=== PATIENT | female | born 1950 | race Caucasian/White ===

== ENCOUNTER 2020-07-08 16:38 | Inpatient (IN) ==
[~2020-07-08 16:38] MED LIST: *HR* Atropine Sulfate 1 MG/10 ML SYRINGE IV ONE
[2020-07-08] MEDS ORDERED: Heparin 1,000 UNITS/500 mL 500 ML ONE (16:54)
[2020-07-08] MEDS ORDERED: ISOVUE-370 200 ML INFUS..BTL ONE (16:54)
[2020-07-08] MEDS ORDERED: *HR* Heparin 10,000 UNIT/10 ML VIAL ONE (16:54)
[2020-07-08] MEDS ORDERED: Nitroglycerin 1,000 MCG/10 ML VIAL IV ONE (16:54)
[2020-07-08] MEDS ORDERED: 0.9 % Sodium Chloride 2,000 ML ONE (16:54)
[2020-07-08] MEDS ORDERED: Perflutren Lipid Microsphere 1.3 ML in 0.9 % Sodium Chloride 8.7 ML IVP PRN (17:56)
[2020-07-08] MEDS ORDERED: *HR* FentaNYL (PF) 100 MCG/2 ML VIAL ONE (18:04)
[2020-07-08] MEDS ORDERED: *HR* Midazolam HCl 2 MG/2 ML VIAL ONE (18:04)
[2020-07-08] MEDS ORDERED: *HR* Norepinephrine 4 MG/4 ML VIAL IVC ONE (18:19)
[2020-07-08] MEDS ORDERED: D5% in Water 250 ML ONE (18:19)
[2020-07-08] MEDS ORDERED: *HR* Dextrose 50 % in Water (Vial) 50 ML VIAL IVP PRN (20:20)
[2020-07-08] MEDS ORDERED: Dextrose Gel 15 GM/37.5 ML TUBE PO PRN ×2 (20:20)
[2020-07-08] MEDS ORDERED: D5% in Water 1,000 ML IVC PRN (20:20)
[2020-07-08] MEDS: *HR* Ticagrelor 90 MG TABLET PO SCH (21:20)
[2020-07-09] MEDS: Insulin LISPRO 300 UNITS/3 ML VIAL SUBQ SCH ×5 (03:22→23:45)
[2020-07-09 05:53] LABS: Basophils % 0.3 %; Eosinophils # 0.1 K/mcL (0.0-0.6); Eosinophils % 0.5 %; Hematocrit 38.8 % (35.3-44.9); Hemoglobin 12.8 g/dL (11.5-15.4); Immature Granulocytes % 0.3 % (0-4); Mean Corpuscular Hemoglobin 30.4 pg (28.0-33.3); Mean Corpuscular Volume 92.2 fL (83.0-100.0); Mean Platelet Volume 10.6 fL (9.4-12.4); Monocytes # 1.1 K/mcL (0.0-1.3); Monocytes % 9.2 %; Neutrophils # 7.4 K/mcL (1.6-8.9); Platelet Count 234 K/mcL (140-400); Red Blood Count 4.21 M/mcL (3.82-4.97); Red Cell Distribution Width 13.9 % (11.5-14.5); Segmented Neutrophils % 63.7 %; White Blood Count 11.7 K/mcL (4.3-11.1)
[2020-07-09 06:18] LABS: Alanine Aminotransferase 33 Units/L (7-52); Albumin 3.9 g/dL (3.5-5.7); Albumin/Globulin Ratio 1.8 (1.1-2.2); Alkaline Phosphatase 61 Units/L (34-104); Aspartate Amino Transferase 137 Units/L (13-39); BUN/Creatinine Ratio 20 (6-26); Bilirubin,Total 0.6 mg/dL (0.3-1.0); Blood Urea Nitrogen 14 mg/dL (8-23); Calcium 8.5 mg/dL (8.6-10.3); Carbon Dioxide 22 mEq/L (23-29); Chloride 107 mEq/L (98-107); Chol/HDL Ratio 4.8 (0-4.9); Cholesterol 164 mg/dL (< 200); Globulin 2.2 g/dL (2.4-3.5); Glucose 98 mg/dL (70-105); HDL Cholesterol 34 mg/dL (40-59); LDL Cholesterol,Calculated 76 mg/dL (< 100); Osmolality,Calculated 288 (280-300); Potassium 3.6 mEq/L (3.5-5.1); Sodium 139 mEq/L (136-145); Total Protein 6.1 g/dL (6.4-8.9); Triglycerides 268 mg/dL (< 150); Troponin I 64.37 ng/mL (< 0.04); eGFR For African Americans > 60 (> 60); eGFR For Non-African Americans > 60 (> 60)
[2020-07-09] MEDS: *HR* Enoxaparin 40 MG/0.4 ML SYRINGE SQ SCH (06:46)
[2020-07-09 09:28] LABS: Estimated Average Glucose 140 mg/dl; Hemoglobin A1C 6.5 %
[2020-07-09] MEDS: Aspirin 81 MG TAB.CHEW PO SCH (09:42)
[2020-07-09] MEDS: *HR* Ticagrelor 90 MG TABLET PO SCH ×2 (09:43→20:17)
[2020-07-10 01:37] LABS: Hematocrit 39.1 % (35.3-44.9); Hemoglobin 12.9 g/dL (11.5-15.4); Mean Corpuscular Hemoglobin 29.9 pg (28.0-33.3); Mean Corpuscular Volume 90.7 fL (83.0-100.0); Mean Platelet Volume 10.8 fL (9.4-12.4); Platelet Count 234 K/mcL (140-400); Red Blood Count 4.31 M/mcL (3.82-4.97); White Blood Count 8.8 K/mcL (4.3-11.1)
[2020-07-10 02:01] LABS: BUN/Creatinine Ratio 17 (6-26); Blood Urea Nitrogen 10 mg/dL (8-23); Calcium 9.1 mg/dL (8.6-10.3); Carbon Dioxide 22 mEq/L (23-29); Chloride 107 mEq/L (98-107); Glucose 101 mg/dL (70-105); Osmolality,Calculated 291 (280-300); Potassium 3.4 mEq/L (3.5-5.1); Sodium 141 mEq/L (136-145); eGFR For African Americans > 60 (> 60); eGFR For Non-African Americans > 60 (> 60)
[2020-07-10] MEDS: *HR* Enoxaparin 40 MG/0.4 ML SYRINGE SQ SCH (05:03)
[2020-07-10] MEDS: Insulin LISPRO 300 UNITS/3 ML VIAL SUBQ SCH ×3 (06:18→18:03)
[2020-07-10] MEDS: Aspirin 81 MG TAB.CHEW PO SCH (08:03)
[2020-07-10] MEDS: *HR* Ticagrelor 90 MG TABLET PO SCH ×2 (08:03→20:00)
[2020-07-10] MEDS ORDERED: Metoprolol XL (24 HR) Succ 50 MG TAB.ER.24H PO SCH (09:00)
[2020-07-10] MEDS: Spironolactone 12.5 MG TABLET PO SCH (12:22)
[2020-07-10] MEDS: Metoprolol XL (24 HR) Succ 25 MG TAB.ER.24H PO SCH ×2 (12:22→20:01)
[2020-07-11 01:04] LABS: BUN/Creatinine Ratio 25 (6-26); Blood Urea Nitrogen 19 mg/dL (8-23); Calcium 8.7 mg/dL (8.6-10.3); Carbon Dioxide 23 mEq/L (23-29); Chloride 105 mEq/L (98-107); Glucose 91 mg/dL (70-105); Osmolality,Calculated 286 (280-300); Potassium 3.7 mEq/L (3.5-5.1); Sodium 137 mEq/L (136-145); eGFR For African Americans > 60 (> 60); eGFR For Non-African Americans > 60 (> 60)
[2020-07-11 01:10] LABS: Albumin 4.1 g/dL (3.5-5.7); Albumin/Globulin Ratio 1.5 (1.1-2.2); Bilirubin,Direct 0.2 mg/dL (0.0-0.2); Bilirubin,Indirect 0.5 mg/dL (0.0-1.0); Bilirubin,Total 0.7 mg/dL (0.3-1.0); Globulin 2.8 g/dL (2.4-3.5); Total Protein 6.9 g/dL (6.4-8.9)
[2020-07-11] MEDS: Insulin LISPRO 300 UNITS/3 ML VIAL SUBQ SCH ×2 (04:20→06:13)
[2020-07-11] MEDS: *HR* Enoxaparin 40 MG/0.4 ML SYRINGE SQ SCH (06:07)
[2020-07-11 06:48] VITALS: BP 122/47
[2020-07-11] MEDS: Aspirin 81 MG TAB.CHEW PO SCH (07:51)
[2020-07-11] MEDS: *HR* Ticagrelor 90 MG TABLET PO SCH (07:51)
[2020-07-11] MEDS: Metoprolol XL (24 HR) Succ 25 MG TAB.ER.24H PO SCH (07:51)
[2020-07-11] MEDS: Spironolactone 12.5 MG TABLET PO SCH (07:51)
[2020-07-11 23:08] LABS: Troponin I 13.36 ng/mL (< 0.04)
== END 2020-07-11 13:05 | disposition home or self-care (01) | DRG 247 ==
LOC: 2NNU
PROVIDERS: ADMIT Internal Medicine; ATTEND Internal Medicine

== ENCOUNTER 2021-02-15 06:35 | Inpatient (IN) ==
[2021-02-15] MEDS ORDERED: *HR* Magnesium Sulfate 2 GM/50 ML PIGGYBACK IVPB ONE (06:36)
[2021-02-15] MEDS ORDERED: Mannitol 25% vial 12.5 GM/50 ML VIAL IVPB ONE (06:36)
[2021-02-15] MEDS ORDERED: Lidocaine 2% Syringe 100 MG/5 ML IVP ONE (06:36)
[2021-02-15] MEDS ORDERED: *HR* Phenylephrine 10 MG/ML VIAL IVC ONE (06:36)
[2021-02-15] MEDS ORDERED: *HR* Heparin 10,000 UNIT/10 ML VIAL IR ONE (06:36)
[2021-02-15] MEDS ORDERED: Albumin Human 25% 25 GM/100 ML IV.SOLN IVPB ONE (06:36)
[2021-02-15] MEDS ORDERED: NiCARdipine 2.5 MG/10 ML Syringe IVPB ONE (06:54)
[2021-02-15] MEDS ORDERED: Chlorhexidine Rinse 15 ML MOUTHWASH MM ONE (06:59)
[2021-02-15] MEDS ORDERED: Ringers Solution, Lactated 1,000 ML IVC SCH (07:00)
[2021-02-15] MEDS ORDERED: *HR* Midazolam HCl 5 MG/5 ML VIAL IVP ONE ×2 (07:08→10:26)
[2021-02-15] MEDS ORDERED: *HR* Rocuronium Bromide 50 MG/5 ML VIAL ONE (07:09)
[2021-02-15] MEDS ORDERED: *HR* FentaNYL (PF) 250 MCG/5 ML VIAL ONE ×2 (07:09→10:26)
[2021-02-15] MEDS ORDERED: Famotidine 20 MG/2 ML VIAL ONE (07:11)
[2021-02-15] MEDS ORDERED: *HR* Etomidate 20 MG/10 ML AMPUL IVP ONE (07:11)
[2021-02-15] MEDS ORDERED: Calcium Gluconate 1,000 MG/10 ML VIAL ONE (07:15)
[2021-02-15] MEDS ORDERED: Protamine Sulfate 250 MG/25 ML VIAL IVP ONE (07:15)
[2021-02-15] MEDS ORDERED: Tranexamic Acid 1,000 MG/10 ML VIAL ONE ×2 (07:15→10:55)
[2021-02-15] MEDS ORDERED: Aspirin 81 MG TAB.CHEW PO STA (07:29)
[2021-02-15] MEDS ORDERED: Heparin 15,000 UNIT in 0.9 % Sodium Chloride 500 ML IV ONE (08:15)
[2021-02-15] MEDS ORDERED: Dextrose 50 % in Water (Vial) 30 ML, Sodium Bicarbonate 20 MEQ, Lidocaine 1% 5 ML, Insu... TH ONE ×3 (08:15)
[2021-02-15] MEDS ORDERED: Norepinephrine 4 MG in 0.9 % Sodium Chloride 250 ML IVC PRN (08:15)
[2021-02-15] MEDS ORDERED: Dextrose 50 % in Water (Vial) 30 ML, Sodium Bicarbonate 20 MEQ, Potassium Chloride 15 M... TH ONE (08:15)
[2021-02-15 09:00] LABS: ABG Base Excess 0 mEq/L (-2 to 3); ABG Chloride 106 mEq/L (98-107); ABG Glucose 120 mg/dL (60-95); ABG HCO3 29 mEq/L (21-27); ABG Ionized Calcium 1.03 mmol/L (1.15-1.35); ABG Oxygen Saturation 87 % (95-98); ABG PCO2 71 mmHg (35-45); ABG PH 7.22 pH Units (7.32-7.45); ABG PO2 66 mmHg (85-104); ABG TCO2 31 mEq/L (20-26)
[2021-02-15] MEDS: CeFAZolin Syr 2,000MG/20 ML 2,000 MG/20 ML SYRINGE IVPB ONE ×2 (09:15→12:35)
[2021-02-15 10:07] LABS: ABG Base Excess 1 mEq/L (-2 to 3); ABG Chloride 103 mEq/L (98-107); ABG Glucose 139 mg/dL (60-95); ABG HCO3 27 mEq/L (21-27); ABG Ionized Calcium 1.19 mmol/L (1.15-1.35); ABG Oxygen Saturation 100 % (95-98); ABG PCO2 48 mmHg (35-45); ABG PH 7.36 pH Units (7.32-7.45); ABG PO2 538 mmHg (85-104); ABG TCO2 28 mEq/L (20-26)
[2021-02-15 11:06] LABS: ABG Base Excess 0 mEq/L (-2 to 3); ABG Chloride 100 mEq/L (98-107); ABG Glucose 126 mg/dL (60-95); ABG HCO3 24 mEq/L (21-27); ABG Ionized Calcium 1.19 mmol/L (1.15-1.35); ABG Oxygen Saturation 100 % (95-98); ABG PCO2 33 mmHg (35-45); ABG PH 7.46 pH Units (7.32-7.45); ABG PO2 604 mmHg (85-104); ABG TCO2 25 mEq/L (20-26)
[2021-02-15 11:31] LABS: ABG Base Excess -2 mEq/L (-2 to 3); ABG Chloride 99 mEq/L (98-107); ABG Glucose 111 mg/dL (60-95); ABG HCO3 23 mEq/L (21-27); ABG Ionized Calcium 1.49 mmol/L (1.15-1.35); ABG Oxygen Saturation 100 % (95-98); ABG PCO2 40 mmHg (35-45); ABG PH 7.37 pH Units (7.32-7.45); ABG PO2 412 mmHg (85-104); ABG TCO2 25 mEq/L (20-26)
[2021-02-15] MEDS ORDERED: Calcium Gluconate 1gm/50mL 1 GM/50 ML BAG IVPB PRN (11:43)
[2021-02-15] MEDS ORDERED: Naloxone 0.4 MG/ML INJ IVP PRN (11:43)
[2021-02-15] MEDS ORDERED: Potassium Chloride 40 MEQ/200 ML BAG IVPB PRN (11:43)
[2021-02-15] MEDS ORDERED: Acetaminophen 650 MG RECTAL SUPP RC PRN (11:43)
[2021-02-15] MEDS ORDERED: Insulin Regular, Human 100 UNIT/ML IV PRN (11:43)
[2021-02-15] MEDS ORDERED: Acetaminophen 325 MG TABLET PO PRN (11:43)
[2021-02-15] MEDS ORDERED: Ondansetron 4 MG/2 ML VIAL IVP PRN (11:43)
[2021-02-15] MEDS ORDERED: *HR* Dextrose 50 % in Water (Syg) 50 ML SYRINGE IVP PRN (11:43)
[2021-02-15] MEDS ORDERED: Albumin Human 5% 12.5 GM/250 ML IV.SOLN IVPB PRN (11:43)
[2021-02-15] MEDS ORDERED: 0.9 % Sodium Chloride w KCl 20 MEQ/1,000 ML MLS IVC SCH (11:45)
[2021-02-15 12:11] LABS: ABG Base Excess -2 mEq/L (-2 to 3); ABG Chloride 96 mEq/L (98-107); ABG Glucose 174 mg/dL (60-95); ABG HCO3 24 mEq/L (21-27); ABG Ionized Calcium 0.83 mmol/L (1.15-1.35); ABG PCO2 41 mmHg (35-45); ABG PH 7.37 pH Units (7.32-7.45); ABG PO2 > 630 mmHg (85-104); ABG TCO2 25 mEq/L (20-26)
[2021-02-15] MEDS ORDERED: Albumin Human 5% 12.5 GM/250 ML IV.SOLN ONE (12:12)
[2021-02-15] MEDS ORDERED: niCARdipine 20 MG/200 ML MLS IVC ONE (12:13)
[2021-02-15 13:38] LABS: ABG Base Excess 1 mEq/L (-2 to 3); ABG HCO3 27 mEq/L (21-27); ABG Oxygen Saturation 99 % (95-98); ABG PCO2 48 mmHg (35-45); ABG PH 7.35 pH Units (7.32-7.45); ABG PO2 169 mmHg (85-104); ABG TCO2 28 mEq/L (20-26); Blood Gas VT 600 cc
[2021-02-15 13:50] LABS: Basophils % 0.2 %; Eosinophils # 0.3 K/mcL (0.0-0.6); Eosinophils % 2.4 %; Hematocrit 33.5 % (35.3-44.9); Immature Granulocytes % 0.6 % (0-4); Lymphocytes % 27.4 %; Mean Corpuscular HGB Conc 32.8 g/dL (31.6-35.5); Mean Corpuscular Hemoglobin 30.9 pg (28.0-33.3); Mean Corpuscular Volume 94.1 fL (83.0-100.0); Mean Platelet Volume 9.8 fL (9.4-12.4); Monocytes # 0.9 K/mcL (0.0-1.3); Monocytes % 8.5 %; Neutrophils # 6.7 K/mcL (1.6-8.9); Platelet Count 137 K/mcL (140-400); Red Blood Count 3.56 M/mcL (3.82-4.97); Red Cell Distribution Width 13.3 % (11.5-14.5); Segmented Neutrophils % 60.9 %
[2021-02-15 13:55] LABS: INR 1.2; Prothrombin Time 14.2 Seconds (9.4-12.1)
[2021-02-15 13:57] LABS: Activated Partial Thrombo Time 27.9 Seconds (26.0-36.0)
[2021-02-15 13:58] LABS: BUN/Creatinine Ratio 21 (6-26); Blood Urea Nitrogen 21 mg/dL (8-23); Calcium 9.2 mg/dL (8.6-10.3); Carbon Dioxide 27 mEq/L (23-29); Chloride 104 mEq/L (98-107); Glucose 96 mg/dL (70-105); Magnesium 2.6 mg/dL (1.6-2.6); Osmolality,Calculated 285 (280-300); Potassium 4.7 mEq/L (3.5-5.1); Sodium 136 mEq/L (136-145); eGFR For African Americans > 60 (> 60); eGFR For Non-African Americans 54 (> 60)
[2021-02-15] MEDS: *HR* OxyCODONE/APAP 5/325 TABLET PO PRN ×2 (14:59→18:19)
[2021-02-15] MEDS: Pantoprazole 40 MG VIAL IVP SCH (14:59)
[2021-02-15] MEDS: Metoclopramide 10 MG/2 ML VIAL IVP SCH ×2 (14:59→19:41)
[2021-02-15] MEDS: CeFAZolin 2 GM/120 ML BAG IVPB SCH (16:00)
[2021-02-15 16:37] LABS: ABG Base Excess -1 mEq/L (-2 to 3); ABG HCO3 25 mEq/L (21-27); ABG Oxygen Saturation 96 % (95-98); ABG PCO2 46 mmHg (35-45); ABG PH 7.35 pH Units (7.32-7.45); ABG PO2 87 mmHg (85-104); ABG TCO2 27 mEq/L (20-26)
[2021-02-15] MEDS ORDERED: *HR* FentaNYL (PF) 100 MCG/2 ML VIAL IVP SCH (17:15)
[2021-02-15] MEDS ORDERED: *HR* FentaNYL (PF) 100 MCG/2 ML VIAL IVP PRN (17:28)
[2021-02-15 17:35] LABS: ABG Base Excess -3 mEq/L (-2 to 3); ABG HCO3 24 mEq/L (21-27); ABG Oxygen Saturation 94 % (95-98); ABG PCO2 45 mmHg (35-45); ABG PH 7.33 pH Units (7.32-7.45); ABG PO2 77 mmHg (85-104); ABG TCO2 25 mEq/L (20-26)
[2021-02-15] MEDS: niCARdipine 20 MG/200 ML MLS IVC SCH ×3 (19:00→19:28)
[2021-02-15] MEDS: Norepinephrine 4 MG/254 ML IV.SOLN IVC SCH (19:20)
[2021-02-15] MEDS: Chlorhexidine Rinse 15 ML MOUTHWASH MM SCH (19:41)
[2021-02-16] MEDS: Metoclopramide 10 MG/2 ML VIAL IVP SCH ×5 (00:23→23:44)
[2021-02-16] MEDS: CeFAZolin 2 GM/120 ML BAG IVPB SCH (00:23)
[2021-02-16] MEDS: niCARdipine 20 MG/200 ML MLS IVC SCH ×3 (00:54→20:31)
[2021-02-16] MEDS: *HR* OxyCODONE/APAP 5/325 TABLET PO PRN (04:19)
[2021-02-16 04:59] LABS: Basophils % 0.2 %; Eosinophils % 0.1 %; Hematocrit 31.6 % (35.3-44.9); Hemoglobin 10.4 g/dL (11.5-15.4); Immature Granulocytes % 0.3 % (0-4); Lymphocytes # 1.4 K/mcL (0.6-4.6); Lymphocytes % 12.2 %; Mean Corpuscular HGB Conc 32.9 g/dL (31.6-35.5); Mean Corpuscular Hemoglobin 31.6 pg (28.0-33.3); Mean Platelet Volume 10.3 fL (9.4-12.4); Monocytes % 8.8 %; Neutrophils # 9.2 K/mcL (1.6-8.9); Platelet Count 148 K/mcL (140-400); Red Blood Count 3.29 M/mcL (3.82-4.97); Red Cell Distribution Width 14.1 % (11.5-14.5); Segmented Neutrophils % 78.4 %; White Blood Count 11.8 K/mcL (4.3-11.1)
[2021-02-16 05:06] LABS: INR 1.2; Prothrombin Time 13.7 Seconds (9.4-12.1)
[2021-02-16 05:08] LABS: Activated Partial Thrombo Time 25.8 Seconds (26.0-36.0)
[2021-02-16 05:15] LABS: BUN/Creatinine Ratio 21 (6-26); Blood Urea Nitrogen 22 mg/dL (8-23); Calcium 8.5 mg/dL (8.6-10.3); Carbon Dioxide 20 mEq/L (23-29); Chloride 106 mEq/L (98-107); Glucose 170 mg/dL (70-105); Magnesium 2.2 mg/dL (1.6-2.6); Osmolality,Calculated 289 (280-300); Potassium 4.8 mEq/L (3.5-5.1); Sodium 136 mEq/L (136-145); eGFR For African Americans > 60 (> 60); eGFR For Non-African Americans 50 (> 60)
[2021-02-16] MEDS: Furosemide 20 MG/2 ML VIAL IVP SCH ×2 (10:18→20:30)
[2021-02-16] MEDS: Pantoprazole 40 MG VIAL IVP SCH (10:18)
[2021-02-16] MEDS: Aspirin Enteric Coated 81 MG Tablet PO SCH (10:18)
[2021-02-16] MEDS: Chlorhexidine Rinse 15 ML MOUTHWASH MM SCH ×2 (10:19→20:30)
[2021-02-16] MEDS ORDERED: D5% in Water 1,000 ML IVC PRN (13:23)
[2021-02-16] MEDS ORDERED: Dextrose Gel 15 GM/37.5 ML TUBE PO PRN ×2 (13:23)
[2021-02-16] MEDS ORDERED: *HR* Dextrose 50 % in Water (Syg) 50 ML SYRINGE IVP PRN (13:55)
[2021-02-16] MEDS ORDERED: Insulin LISPRO 300 UNITS/3 ML VIAL SUBQ SCH (16:30)
[2021-02-16] MEDS: Norepinephrine 4 MG/254 ML IV.SOLN IVC SCH (19:44)
[2021-02-17] MEDS: Metoclopramide 10 MG/2 ML VIAL IVP SCH (06:08)
[2021-02-17] MEDS: Pantoprazole 40 MG VIAL IVP SCH (07:52)
[2021-02-17] MEDS: Aspirin Enteric Coated 81 MG Tablet PO SCH (07:52)
[2021-02-17] MEDS: Furosemide 20 MG/2 ML VIAL IVP SCH ×2 (07:52→20:19)
[2021-02-17] MEDS: Chlorhexidine Rinse 15 ML MOUTHWASH MM SCH ×2 (07:54→20:19)
[2021-02-17] MEDS ORDERED: *HR* Dextrose 50 % in Water (Syg) 50 ML SYRINGE IVP PRN (12:47)
[2021-02-17] MEDS ORDERED: Ondansetron 4 MG/2 ML VIAL IVP PRN (12:47)
[2021-02-17] MEDS ORDERED: Dextrose Gel 15 GM/37.5 ML TUBE PO PRN ×2 (12:47)
[2021-02-17] MEDS ORDERED: Acetaminophen 325 MG TABLET PO PRN (12:47)
[2021-02-17] MEDS ORDERED: D5% in Water 1,000 ML IVC PRN (12:47)
[2021-02-17] MEDS ORDERED: Potassium Chloride 40 MEQ/200 ML BAG IVPB PRN (12:47)
[2021-02-17] MEDS ORDERED: *HR* OxyCODONE/APAP 5/325 TABLET PO PRN (12:47)
[2021-02-17] MEDS ORDERED: Calcium Gluconate 1gm/50mL 1 GM/50 ML BAG IVPB PRN (12:47)
[2021-02-17] MEDS: Insulin LISPRO 300 UNITS/3 ML VIAL SUBQ SCH (17:10)
[2021-02-18] MEDS: Insulin LISPRO 300 UNITS/3 ML VIAL SUBQ SCH ×3 (08:12→16:50)
[2021-02-18] MEDS: Aspirin Enteric Coated 81 MG Tablet PO SCH (08:56)
[2021-02-18] MEDS: Furosemide 20 MG/2 ML VIAL IVP SCH ×2 (08:57→19:32)
[2021-02-18] MEDS: Chlorhexidine Rinse 15 ML MOUTHWASH MM SCH ×2 (08:57→19:32)
[2021-02-18] MEDS: Pantoprazole 40 MG VIAL IVP SCH (08:58)
[2021-02-19 04:48] LABS: Basophils % 0.3 %; Eosinophils # 0.2 K/mcL (0.0-0.6); Eosinophils % 2.7 %; Hematocrit 27.2 % (35.3-44.9); Immature Granulocytes % 0.4 % (0-4); Lymphocytes # 2.2 K/mcL (0.6-4.6); Lymphocytes % 31.5 %; Mean Corpuscular HGB Conc 33.1 g/dL (31.6-35.5); Mean Corpuscular Volume 93.8 fL (83.0-100.0); Mean Platelet Volume 10.7 fL (9.4-12.4); Monocytes # 0.6 K/mcL (0.0-1.3); Neutrophils # 3.9 K/mcL (1.6-8.9); Platelet Count 150 K/mcL (140-400); Red Cell Distribution Width 14.1 % (11.5-14.5); Segmented Neutrophils % 56.1 %
[2021-02-19 05:02] LABS: BUN/Creatinine Ratio 22 (6-26); Blood Urea Nitrogen 17 mg/dL (8-23); Calcium 8.6 mg/dL (8.6-10.3); Carbon Dioxide 27 mEq/L (23-29); Chloride 99 mEq/L (98-107); Glucose 100 mg/dL (70-105); Osmolality,Calculated 284 (280-300); Potassium 3.4 mEq/L (3.5-5.1); Sodium 136 mEq/L (136-145); eGFR For African Americans > 60 (> 60); eGFR For Non-African Americans > 60 (> 60)
[2021-02-19] MEDS: Insulin LISPRO 300 UNITS/3 ML VIAL SUBQ SCH ×3 (07:53→16:59)
[2021-02-19] MEDS: Aspirin Enteric Coated 81 MG Tablet PO SCH (07:53)
[2021-02-19] MEDS: Pantoprazole 40 MG VIAL IVP SCH (07:53)
[2021-02-19] MEDS: Chlorhexidine Rinse 15 ML MOUTHWASH MM SCH ×2 (07:53→20:16)
[2021-02-19] MEDS: *HR* Ticagrelor 90 MG TABLET PO SCH ×2 (11:43→20:17)
[2021-02-19] MEDS: amLODIPine 5 MG TABLET PO SCH (11:43)
[2021-02-20 07:36] VITALS: BP 173/89; PULSE 85; TEMP 98
[2021-02-20] MEDS: Insulin LISPRO 300 UNITS/3 ML VIAL SUBQ SCH (08:18)
[2021-02-20] MEDS: *HR* Ticagrelor 90 MG TABLET PO SCH (08:20)
[2021-02-20] MEDS: amLODIPine 5 MG TABLET PO SCH (08:21)
[2021-02-20] MEDS: Chlorhexidine Rinse 15 ML MOUTHWASH MM SCH (08:21)
[2021-02-20] MEDS: Aspirin Enteric Coated 81 MG Tablet PO SCH (08:21)
[2021-02-20] MEDS: Pantoprazole 40 MG VIAL IVP SCH (08:21)
[2021-02-20 10:37] VITALS: O2SAT 96
== END 2021-02-20 10:59 | disposition home or self-care (01) ==
LOC: SAMDAY 06:35 → ICNU 13:04 → 2NNU 02-17 19:30
PROVIDERS: ADMIT Thoracic Surgery (Cardiothoracic Vascular Surgery); ATTEND Thoracic Surgery (Cardiothoracic Vascular Surgery)